=== PATIENT | female | born 1965 | race Caucasian/White ===

== ENCOUNTER 2018-10-13 12:59 | Day surgery (SDC) | payer OTHER ==
[2018-10-13] MEDS ORDERED: PROPOFOL 40 ML (15:47)
[2018-10-13] MEDS ORDERED: LIDOCAINE 100 MG SYRINGE (15:47)
== END 2018-10-13 17:51 | disposition home or self-care (01) ==
LOC: GIL 12:59 → REC 13:01 → GIL 12:59
DX: Z12.11 Encounter for screening for malignant neoplasm of colon (principal); K64.8 Other hemorrhoids; I10 Essential (primary) hypertension; E11.9 Type 2 diabetes mellitus without complications; Z79.84 Long term (current) use of oral hypoglycemic drugs
CPT/HCPCS: 45378; 82962